=== PATIENT | male | born 1990 | race African-American/Black ===

== ENCOUNTER 2025-02-21 23:27 | Emergency (ER) | payer BC, OTHER ==
[~2025-02-21] VITALS: Ht 177.8 cm; Wt 69.0 kg
[2025-02-21 23:31] VITALS: O2SAT 99
[2025-02-22] MEDS: KETOROLAC 15MG/ML VIAL IM ONE (00:41)
[2025-02-22] MEDS ORDERED: AMOX1TAB16 MT (01:17)
[2025-02-22] MEDS: ACETAMINOPHEN 500MG TABLET PO ONE (01:33)
[2025-02-22] MEDS: AMOXICILLIN/POTASSIUM CLAVULANATE 875/125MG TAB PO ONE (02:10)
[2025-02-22 02:16] VITALS: BP 135/75; PULSE 87; RESP 18; TEMP 37.1; O2SAT 99
== END 2025-02-22 02:15 | disposition home or self-care (01) ==
LOC: ER 02-22 00:18
DX: K04.7 Periapical abscess without sinus (principal); F12.10 Cannabis abuse, uncomplicated
CPT/HCPCS: 99283; 96372; J1885